=== PATIENT | female | born 1990 | race Caucasian/White ===

== ENCOUNTER 2016-12-05 16:25 | Emergency (ER) | payer SELFPAY ==
[~2016-12-05] VITALS: Ht 157.5 cm; Wt 70.3 kg
[2016-12-05 16:30] VITALS: BP 114/57
[2016-12-05] MEDS ORDERED: PRED20TA PO (16:58)
[2016-12-05] MEDS ORDERED: CEPH500T PO (16:58)
--- NOTE | 2016-12-05 16:58 | PHYS DOC ---
Adult General Chief Complaint Chief Complaint: INSECT BITE HPI HPI Patient is a 26 year old female presents to the emergency department stating that she has been applied to her upper arms. Patient states she's had these for the last 2 days. She states that she has used Benadryl to help with the itching and irritation however the redness has been getting larger. Patient states that there is been no drainage or discharge. She states that there is been some lumps around a few with the bites. Patient states that she has her immunizations are up-to-date approximately one to 2 years ago. Patient denies fever, chills or nausea vomiting. Review of Systems Review of Systems Constitutional: Denies fever or chills [] Eyes: Denies change in visual acuity, redness, or eye pain [] HENT: Denies nasal congestion or sore throat [] Respiratory: Denies cough or shortness of breath [] Cardiovascular: No additional information not addressed in HPI [] GI: Denies abdominal pain, nausea, vomiting, bloody stools or diarrhea [] : Denies dysuria or hematuria [] Musculoskeletal: Denies back pain or joint pain [] Integument: Denies rash or skin lesions. Complaint of blood bites to bilateral upper arms Neurologic: Denies headache, focal weakness or sensory changes [] Endocrine: Denies polyuria or polydipsia [] Physical Exam Physical Exam Constitutional: Well developed, well nourished, no acute distress, non-toxic appearance. [] HENT: Normocephalic, atraumatic, bilateral external ears normal, oropharynx moist, no oral exudates, nose normal. [] Eyes: PERRLA, EOMI, conjunctiva normal, no discharge. [] Neck: Normal range of motion, no tenderness, supple, no stridor. [] Cardiovascular:Heart rate regular rhythm Lungs & Thorax: No respiratory distress noted Skin: Warm, dry, no erythema, no rash. Patient with of bites noted to bilateral arms. Patient with a bug bite to the right upper arm that appears to be slightly red no tenderness noted no drainage noted. Patient was noted to have 2 blood bites on the left forearm that she has redness her car around for the areas and has had a lump. The lump has decreased in size however there still appears to be some slight redness noted drainage or discharge noted from the site. Extremities: No tenderness, no cyanosis, no clubbing, ROM intact, no edema. [] Neurologic: Alert and oriented X 3, normal motor function, normal sensory function, no focal deficits noted. [] Psychologic: Affect normal, judgement normal, mood normal. [] EKG EKG [] Radiology/Procedures Radiology/Procedures [] Course & Med Decision Making Course & Med Decision Making Pertinent Labs and Imaging studies reviewed. (See chart for details) Patient was recommended to continue to use Benadryl 25 mg every 6 hours. She was instructed this medication will cause drowsiness do not take any be alert and oriented. Patient was also instructed that she will be placed on prednisone as well as Keflex for infection. Recommended keeping the area clean dry and cool. Since symptoms to return back to emergency prior has been provided. Patient agrees with discharge instructions, treatment regimens and follow-up recommendations. All questions and concerns been answered at patient's bedside. [] Dragon Disclaimer Dragon Disclaimer This electronic medical record was generated, in whole or in part, using a voice recognition dictation system. Departure Departure Impression: Primary Impression: Multiple insect bites Disposition: HOME, SELF-CARE Condition: STABLE Referrals: NO PCP (PCP) Patient Instructions: Insect Bite, [id number] Additional Instructions: Activity as tolerated. Keep the areas clean dry and cool. Continue with the Benadryl 25 mg every 6 hours as needed for itching and irritation. This medication will cause drowsiness do not take any be alert and oriented. Medications as prescribed. Follow-up the primary care physician in the next week. Return back to emergency prior signs symptoms of become worse. Scripts Cephalexin (CEPHALEXIN) 500 Mg Tablet 1 TAB PO BID, #20 TAB Prov: QAMAR MENDEZ APRN 12/05/16 Prednisone (PREDNISONE) 20 Mg Tablet 40 MG PO DAILY for 7 Days, #14 TAB Prov: QAMAR MENDEZ APRN 12/05/16 QAMAR MENDEZ APRN Dec 05, 2016 16:58
== END 2016-12-05 17:15 | disposition home or self-care (01) ==
LOC: ER 16:25
DX: S40.862A Insect bite (nonvenomous) of left upper arm, initial encounter (principal); S40.861A Insect bite (nonvenomous) of right upper arm, initial encounter; S50.862A Insect bite (nonvenomous) of left forearm, initial encounter; W57.XXXA Bitten or stung by nonvenomous insect and other nonvenomous arthropods, initial encounter; Y93.89 Activity, other specified; Y92.89 Other specified places as the place of occurrence of the external cause; Y99.8 Other external cause status
CPT/HCPCS: 99283